=== PATIENT | female | born 1975 | race Two or more races ===

== ENCOUNTER 2019-06-02 23:43 | Emergency (ER) | payer OTHER ==
[~2019-06-02] VITALS: Ht 157.5 cm; Wt 67.8 kg
--- NOTE | 2019-06-03 00:34 | NUR ---
PT TO ED WITH C/O LEFT EAR PAIN, SORE THRAOT, OCCASIONAL NONPRODUCTIVE COUGH AND FATIGUE. PT REPORTS POSSIBLE COVID EXPOSURE AT WORK. PT WORKS FOR [employer] (FORM[employer] [employer] [employer] [employer]) [employer] DEPT. DENIES ANY OTHER C/O AT THIS TIME. PT PLACED ON MONITORING, CALL LIGHT WITHIN REACH, ALL SAFETY MEASURES IN PLACE. FAMILY AT BS FOR SUPPORT.
[2019-06-03 02:06] VITALS: BP 132/80
== END 2019-06-03 02:09 | disposition home or self-care (01) ==
LOC: ED 06-03 01:45
DX: B34.9 Viral infection, unspecified (principal); Z20.828 Contact with and (suspected) exposure to other viral communicable diseases
CPT/HCPCS: 71045; 87081; 87880; 99284

== ENCOUNTER 2020-03-14 15:20 | Emergency (ER) | payer OTHER ==
[~2020-03-14] VITALS: Ht 157.5 cm; Wt 68.7 kg
--- NOTE | 2020-03-14 16:39 | NUR ---
PT JUST WALKED BACK TO ROOM
[2020-03-14] MEDS ORDERED: KETOROLAC 30 MG/1 ML IM ONE (17:00)
[2020-03-14] MEDS ORDERED: ONDANSETRON ODT 4 MG PO ONE (17:00)
[2020-03-14 17:14] LABS: BASOPHILS % (AUTO) 1 % (0-1); EOSINOPHILS % (AUTO) 2 % (1-7); LYMPHOCYTES % (AUTO) 44 % (22-44); MEAN CORPUSCULAR HEMOGLOBIN 29.6 pg (27.0-34.8); MEAN CORPUSCULAR HGB CONC 32.7 g/dL (32.4-35.8); MEAN PLATELET VOLUME 7.6 fL (7.4-10.4); MONOCYTES % (AUTO) 7 % (2-9); NEUTROPHILS % (AUTO) 47 % (42-75); PLATELET COUNT 334 x10^3/uL (130-400); RED BLOOD COUNT 4.41 x10^6/uL (3.82-5.3); RED CELL DISTRIBUTION WIDTH 15.3 % (9.6-15.2)
[2020-03-14 17:17] LABS: MD NO
[2020-03-14 17:20] LABS: ALBUMIN 4.1 g/dL (3.4-5.0); ANION GAP 4 mmol/L (5-15); CALCIUM 8.7 mg/dL (8.5-10.1); CHLORIDE 111 mmol/L (98-107); CREATININE 0.85 mg/dL (0.55-1.02)
[2020-03-14] MEDS ORDERED: ONDANSETRON ODT 4 MG ONE (17:23)
[2020-03-14] MEDS ORDERED: KETOROLAC 30 MG/1 ML ONE (17:23)
--- NOTE | 2020-03-14 17:55 | NUR ---
PT TO CT. URINE WALKED TO LAB.
[2020-03-14 17:58] LABS: HCG UR SG 1.011 (1.003-1.030); MICROSCOPIC NOT IND
--- NOTE | 2020-03-14 19:01 | NUR ---
report to cristhian chavis.
--- NOTE | 2020-03-14 19:03 | NUR ---
report received from kali chavis.
[2020-03-14 19:09] LABS: ALBUMIN 4.1 g/dL (3.4-5.0); BILIRUBIN, DIRECT 0.1 mg/dL (0.1-0.2)
[2020-03-14 19:11] LABS: BILIRUBIN,INDIRECT 0.5 mg/dL (0.0-2.0); BILIRUBIN,TOTAL 0.6 mg/dL (0.2-1.0); TOTAL PROTEIN 7.5 g/dL (6.4-8.2)
[2020-03-14 20:15] VITALS: BP 133/70
== END 2020-03-14 20:17 | disposition home or self-care (01) ==
LOC: ED 16:35
DX: M54.5 Low back pain (principal); R11.0 Nausea
CPT/HCPCS: 36415; 74176; 80048; 80076; 81003; 81025; 82040; 83690; 85025; 96372; 99285; J1885; Q0162; 96374